=== PATIENT | male | born 1940 | race Caucasian/White ===

== ENCOUNTER 2017-08-24 08:08 | Day surgery (SDC) | payer OTHER ==
[~2017-08-24] VITALS: Ht 182.9 cm; Wt 98.7 kg
[2017-08-24] VITALS (7 sets, daily range): BP systolic 133–151; BP diastolic 79–108
[2017-08-24] MEDS ORDERED: LIDOcaine 1% 30ml vial SQ ONE (08:35)
[2017-08-24] MEDS ORDERED: HYDROcodone/acetaminophen 10/325mg tab PO PRN (08:45)
[2017-08-24] MEDS ORDERED: ATOR-2 PO (09:01)
[2017-08-24] MEDS ORDERED: METF500T7 PO (09:01)
[2017-08-24] MEDS ORDERED: ASPI81TA52 PO (09:01)
[2017-08-24] MEDS ORDERED: COLE3.75 PO (09:01)
[2017-08-24] MEDS ORDERED: FENO145T38 PO (09:01)
[2017-08-24] MEDS ORDERED: FLO0.4C PO (09:01)
[2017-08-24] MEDS ORDERED: LOSA25TA96 PO (09:01)
[2017-08-24] MEDS ORDERED: ZOLP10TA5 PO (09:01)
[2017-08-24 11:45] LABS: GLUCOSE,BODY FLUID 118 MG/DL; LDH,BODY FLUID 172 U/L; TOTAL PROTEIN,BODY FLUID 3.9 G/DL
[2017-08-24 14:56] LABS: BFAPPEAR CLOUDY
[2017-08-24 14:57] LABS: BF RBC COUNT 4225 /CU MM; BF WBC COUNT 1215 /CU MM (0-1000); BFCOLOR AMBER; BFVOLUME 50 ML; EOSINOPHILS,BODY FLUID 3 %; LYMPHOCYTES,BODY FLUID 85 %; MONOCYTES,BODY FLUID 9 %; NEUTROPHILS,BODY FLUID 3 %
== END 2017-08-24 10:05 | disposition home or self-care (01) ==
LOC: SSTAY O 08:08
PROVIDERS: ATTEND Radiology Diagnostic Radiology
DX: J94.0 Chylous effusion (principal); E11.9 Type 2 diabetes mellitus without complications; E78.5 Hyperlipidemia, unspecified; I10 Essential (primary) hypertension; I71.2 Thoracic aortic aneurysm, without rupture; Z95.1 Presence of aortocoronary bypass graft; Z87.891 Personal history of nicotine dependence; Z79.82 Long term (current) use of aspirin; Z79.84 Long term (current) use of oral hypoglycemic drugs; Z79.899 Other long term (current) drug therapy
CPT/HCPCS: 32555; 71045; 82945; 83615; 84157; 87070; 89051; J3490